=== PATIENT | male | born 1995 | race Caucasian/White ===

== ENCOUNTER 2022-11-17 16:40 | Emergency (ER) | payer MEDICAID, SELFPAY ==
--- NOTE | ~2022-11-17 | XR_ITS ---
EXAMINATION: XR ankle RT 2V CLINICAL INFORMATION: Reason for Exam INJ 2 DAYS AGO COMPARISON: None. TECHNIQUE: AP, lateral, and oblique views of the ankle FINDINGS: No acute fracture or dislocation. Joint spaces are maintained without significant degenerative change. No joint effusion or soft tissue abnormality. XR/XR ankle RT 2V IMPRESSION: No acute osseous abnormality.
[2022-11-17 17:02] VITALS: BP 118/73; PULSE 92; RESP 14; TEMP 36.1; O2SAT 97; BMI 24.3
--- NOTE | 2022-11-17 17:21 | ED.LOWEXIN ---
HPI - Extremity Injury (Lower) General Chief Complaint: Extremity Injury, Lower Stated Complaint: right ankle pain inj 11/14 Time Seen by Provider: 11/17/22 18:35 Source: patient Mode of arrival: ambulatory Limitations: no limitations History of Present Illness HPI Narrative: 27-year-old male here with right ankle pain. Patient reports Monday night he had a slip and fall on the ice causing an inversion injury of the right ankle. He reports he has been icing it and resting it and is feeling much better. He went to work today but his job told him he needed a work note Related Data Allergies Allergy/AdvReac Type Severity Reaction Status Date / Time No Known Allergies Allergy Verified 11/17/22 17:07 Review of Systems Review of Systems: Yes all other systems are reviewed and are negative Constitutional: Constitutional: Reports no additional constitutional complaints, Denies body ache(s), Denies chills, Denies fever(s), Denies headache(s) and Denies weakness Eyes: Eyes: Reports no additional eye complaints and Denies change in vision ENT: Reports system reviewed and no additional complaints, except as documented, Denies dizziness, Denies headache(s), Denies nasal congestion, Denies nasal discharge and Denies neck pain Cardiovascular: Cardiovascular: Reports no additional cardiovascular complaints, Denies chest pain, Denies leg edema and Denies dyspnea Respiratory: Respiratory: Reports no additional respiratory complaints, Denies cough and Denies dyspnea Gastrointestinal: Gastrointestinal: Reports no additional gastrointestinal complaints, Denies abdominal pain, Denies diarrhea, Denies nausea and Denies vomiting Genitourinary: Genitourinary: Denies urinary incontinence Musculoskeletal: Musculoskeletal: Reports no additional musculoskeletal complaints, Denies back pain, Reports arthralgias, Reports joint swelling, Denies neck pain, Denies numbness and Denies tingling Integumentary/Breasts: Skin/Breast: Reports system reviewed and no additional complaints, except as docu and Denies rash Neurologic: Reports system reviewed and no additional complaints, except as documented, Denies Abnormal speech present, Denies dizziness, Denies headache(s), Denies numbness, Denies tingling and Denies weakness PMFSH Social History Social History Advance Directives: No Advance Directives Information Provided: No Physical Exam Vital Signs: Vital Signs: Last Vital Signs Temp 97 F 11/17/22 17:02 Pulse 92 11/17/22 17:02 Resp 14 11/17/22 17:02 BP 118/73 11/17/22 17:02 Pulse Ox 97 11/17/22 17:02 O2 Del Method 11/17/22 17:02 BMI result Body Mass Index 24.3 Const: General: cooperative, healthy appearing, comfortable and no acute distress Orientation/consciousness: patient oriented x3 Limitations: no limitations HEENT: Head: Yes normal to inspection Ears: hearing grossly normal bilaterally General nose exam: Normal external nose present Face and sinus: Yes normal facial exam Mouth: Normal oral and palatal mucosa present Throat: Yes posterior oropharynx normal Eyes: General: appearance normal, both eyes and all related structures Pupils: Equal, round and reactive pupils present Neck: Neck: Yes normal visual inspection Chest: Chest palpation & inspection: normal inspection of the chest Resp: Effort & Inspection: normal respiratory effort Auscultation: clear to auscultation bilaterally Cardio: Rate: regular rate Rhythm: regular rhythm Peripheral pulses: Peripheral pulses 2+ throughout GI: Inspection: Yes normal to inspection Palpation (GI): Soft to palpation and nontender Auscultation: normal bowel sounds Back/Spine/Pelvis: Thoracic/Lumbar Spine: thoracic and lumbar spine normal to inspection Skin: General skin exam: no rashes or lesions noted Neuro: General: patient oriented x3, no focal motor deficits and normal sensation to monofilament Cranial nerves: Yes Equal, round and reactive pupils present Cognition (Neuro): normal cognition Speech: No Abnormal speech present Gait exam (Neuro): Normal gait present Motor exam (neuro): 5/5 motor strength present throughout Extrem: Other: Patient has full range of motion of the right ankle. There is no palpable tenderness. Normal sensation. No ligamental laxity. Normal dorsalis pedis and posterior tibial pulses. General: Yes normal to inspection Course Course Course Narrative: This is a rapid medical exam. Defer additional HPI, ROS, PE to provider. 27-year-old male here with right ankle pain after slip will twisting injury on the ice. Patient reports his work will not let him return to work without a clearance note. Will check x-rays. Vitals stable. Reevaluation(s) Reevaluation #1: X-ray show no acute fracture. Likely sprain which patient has now recovered from. Patient will be given note to return to work. Reviewed worrisome signs and symptoms of when to return to the emergency room. Comfortable plan for discharge home. Medical Decision Making Medical Decision Making MDM Narrative: 27-year-old male here with right ankle pain after an inversion injury which occurred several days ago. Patient reports he is here today for a note to let him go back to work. Patient reports he rested it and applied ice and now he feels like the ankle is better. On exam patient with no palpable tenderness, full range of motion. No ligamental laxity. X-rays obtained and triage will review Differential Diagnosis Differential Diagnoses: The differential diagnosis associated with the presentation includes Sprain, fracture Independent Interpretation I performed an independent interpretation of an: Plain X-Ray (I independently reviewed the x-ray which shows no acute fracture) Radiology Impression Discussion of test interpretation with radiology: I have reviewed the radiologist's reading. Radiologist Impression: [address] [address] XRay Report Signed Patient: Rocky Cameron MR#: [id number] : 1995 Acct:[id number] Age/Sex: 27 / M ADM Date: 11/17/22 Loc: HO.ED Attending Dr: Ordering Physician: Generic ED Physician Date of Service: 11/17/22 Procedure(s): XR ankle RT 2V Accession Number(s): [id number] cc: Generic ED Physician~ EXAMINATION: XR ankle RT 2V CLINICAL INFORMATION: Reason for Exam INJ 2 DAYS AGO COMPARISON: None. TECHNIQUE: AP, lateral, and oblique views of the ankle FINDINGS: No acute fracture or dislocation. ? Joint spaces are maintained without significant degenerative change. No joint effusion or soft tissue abnormality. XR/XR ankle RT 2V IMPRESSION: ? No acute osseous abnormality. Discharge Plan Discharge Clinical Impression: Ankle sprain and strain Patient Disposition: Home, Self-Care Instructions: Ankle Sprain (ED) Additional Instructions: X-ray show no fracture You likely had a sprain. This is now healed You may resume your normal work duties Referrals: Physician,None [Physician] - Stand Alone Forms: Work/School Release Interventions: ED Discharge Assessment Last Done: 11/17/22 18:52
== END 2022-11-17 18:53 | disposition home or self-care (01) ==
PROVIDERS: Emergency Provider Emergency Medicine
DX: S93.401A Sprain of unspecified ligament of right ankle, initial encounter (principal); W01.0XXA Fall on same level from slipping, tripping and stumbling without subsequent striking against object, initial encounter; Y93.9 Activity, unspecified; Y92.9 Unspecified place or not applicable; Y99.9 Unspecified external cause status
CPT/HCPCS: 73600; 99282; 99283

== ENCOUNTER 2023-05-03 18:22 | Emergency (ER) | payer MEDICAID, SELFPAY ==
[2023-05-03 19:43] VITALS: BP 126/80; PULSE 71; RESP 18; TEMP 36.3; O2SAT 97; BMI 27.3
--- NOTE | 2023-05-03 19:43 | ED.GENADULT ---
HPI - General Adult General Chief complaint: Urogenital-Male Stated complaint: Std check Time Seen by Provider: 05/03/23 20:25 Source: patient Mode of arrival: ambulatory Limitations: no limitations History of Present Illness HPI narrative: 28-year-old male presents for STD testing, reports he had unprotected sex a few weeks ago, and his partner recently tested positive for herpes. He reports he has a small lesion on the right base of his shaft which he noticed today. He denies any drainage, discharge, chest pain, shortness of breath, nausea, vomiting, headache, vision changes, fevers, chills. Patient denies urinary symptoms. Related Data Previous Rx's Medication Instructions Recorded valacyclovir 1 gram tablet 1,000 mg PO BID 10 days #20 tabs 05/03/23 (Valtrex) Allergies Allergy/AdvReac Type Severity Reaction Status Date / Time No Known Allergies Allergy Verified 05/03/23 19:49 Review of Systems Review of Systems: Constitutional : No Weight loss, No Fever, No Chills, No Fatigue, No Malaise ENT/Mouth : No sore throat, No Rhinorrhea Eyes: No Eye Pain, No Swelling, No Redness Cardiovascular : No Chest Pain, No SOB, No Dyspnea on Exertion, No Orthopnea, No Edema, No Palpitations Respiratory : No Cough, No Sputum, No Wheezing Gastrointestinal : No Nausea, No Vomiting, No Diarrhea, No Constipation, No abdominal Pain, No Hematochezia, No Melena Genitourinary : No Dysuria, No Urinary Frequency, No Hematuria, Musculoskeletal : No joint pain, No Myalgias, No Joint Swelling Skin :+ Skin Lesions, No rash Neuro : No Weakness, No Numbness, No Dizziness, No Headache Psych : No Anxiety/Panic, No Depression All other systems reviewed and are negative Yes all other systems are reviewed and are negative [facility] Past Medical History Attestation statement: The following information was validated with the patient. Source: old records reviewed and nursing notes reviewed Physical Exam ED Vital Signs: Vital Signs - 24 hr 05/03/23 19:43 Temperature 97.4 F Pulse Rate 71 Respiratory Rate 18 Blood Pressure 126/80 Pulse Oximetry 97 Oxygen Delivery Method Room Air BMI result Body Mass Index 27.3 vss Appearance: Alert.? Oriented X3.? No acute distress.? Head: Normocephalic, atraumatic, no step-offs or deformities Eyes: Pupils equal, round and reactive to light.? CVS: Normal heart rate and rhythm.? Pulses normal.? Respiratory: No respiratory distress.? Breath sounds normal.? Abdomen: Soft and nontender.? Skin: Skin warm and dry.? Normal skin color.? Normal skin turgor.? Extremities: No lower extremity edema.? No calf ttp. 5/5 strength to bilateral upper and lower extremities Back: No midline tenderness, no C-spine tenderness, full range of motion, no CVA tenderness bilaterally Neuro: Oriented X 3.? No motor deficit.? No sensory deficit. 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 No drainage noted from penis Course Course Course Narrative: This is a rapid medical exam: Additional HPI, ROS, PE not included below will be deferred to primary provider. Patient is a 28-year-old male presenting to the emergency department for STI testing. States male partner that he had intercourse with on Monday noted symptoms on Monday and was told he likely has HSV. Patient reporting a blister/lesion to the base of the shaft of his penis earlier today. Denies any pain but reports area is sensitive. Denies any dysuria or penile discharge. Plan: CT NG urine and UA ordered Medical Decision Making Medical Decision Making [facility] Narrative: 2107 28-year-old male presents with concerns of herpes and possible STDs. 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 No drainage noted from penis I do have some concern for herpes, gonorrhea and chlamydia. Other differentials include HIV, hepatitis-C which can be tested for on an outpatient setting, no need for emergent testing at this time. Unlikely UTI, pyelonephritis. No signs of systemic disease. I did have a long conversation about prophylactic treatment for gonorrhea, chlamydia, Trichomonas however patient refuses. He only wants to be treated for herpes at this time and he will wait for his urine to results to determine whether not he wants treatment for gonorrhea chlamydia. I did educate him on full panel STD testing and to go somewhere to get tested for HIV and hepatitis-C. Patient verbalizes understanding. Will treat with Valtrex at this time and discharged home with same based off CDC recommendations a 1000 mg p.o. for 7-10 days. Will have him follow-up with PCP. Educated patient on diagnosis and treatment plan, answered all question, patient verbalizes understanding. At this time patient will be discharged home, advised to return with new or worsening symptoms. Educated on worrisome signs and symptoms and when to return. At this time I feel comfortable discharge home. Differential Diagnosis Differential Diagnoses: The differential diagnosis associated with the presentation includes I do have some concern for herpes, gonorrhea and chlamydia. Other differentials include HIV, hepatitis-C which can be tested for on an outpatient setting, no need for emergent testing at this time. Unlikely UTI, pyelonephritis. No signs of systemic disease. Admission/Observation Consideration of admission/observation: Escalation of care including admission/observation considered unlikely Core Measures AMI core measures followed: Yes Measure exclusions: not indicated Critical Care Time Critical Care Time Critical Care Time: No Discharge Plan Discharge Clinical Impression: Encounter for assessment of STD exposure, Herpes Patient Disposition: Home, Self-Care Additional Instructions: Take your medications as prescribed. If you were prescribed antibiotics today, it is important that you take your medication to their entirety, do not skip any doses, do not finish them early. Follow-up with your primary care provider this week. Return to the emergency department with new or worsening symptoms. Such as fevers, chills, chest pain, shortness of breath, nausea, vomiting, dizziness, headache, vision changes, lethargy In case of emergency call 911 You were treated here today with Valtrex 1000 mg this is treatment for herpes. You did not want prophylactic treatment for gonorrhea, chlamydia or Trichomonas.. Do not stop them early, do not skip any doses. Until you are reevaluated by a health care provider please practice safe sex as disucussed. Please also have a conversation with your sexual partners.? I also advise you to obtain full panel STD testing to test for other STDs including HIV, Hepatitis B & C and syphilis with your PCP or a local clinic. Prescriptions: New valacyclovir [Valtrex] 1 gram tablet 1,000 mg PO BID 10 Days Qty: 20 0RF Referrals: Physician,None [Primary Care Provider] - 2 days Stand Alone Forms: Work/School Release
[2023-05-03] MEDS: valACYclovir HCL 1,000 MG TABLET 1000 MG PO (21:39)
[2023-05-03 21:43] LABS: Appearance Urine Clear; Color Urine Yellow; Glucose Urine UA Negative (Negative); Leukocyte Esterase Urine Negative (Negative); Nitrite Urine Negative (Negative); PH 6.5 (5.0-9.0); Urine Blood Negative (Negative); Urine Ketones Negative (Negative); Urine Protein Negative (Neg-Trace)
[2023-05-04 11:05] LABS: CT PCR NOT DETECTED (Not Detect.); NG PCR NOT DETECTED (Not Detect.)
== END 2023-05-03 21:49 | disposition home or self-care (01) ==
PROVIDERS: Physician Assistant; Registered Nurse Emergency; Emergency Provider Emergency Medicine Emergency Medical Services
DX: Z20.2 Contact with and (suspected) exposure to infections with a predominantly sexual mode of transmission (principal); A60.01 Herpesviral infection of penis
CPT/HCPCS: 0353U; 36415; 81003; 87255; 99283